=== PATIENT | male | born 1955 | race Hispanic/Latino ===

== ENCOUNTER → 2018-03-13 | Outpatient (CLI) | payer BC ==
--- NOTE | 2018-03-13 18:55 | Diagnostic Imaging Report ---
EXAM: Right Upper Quadrant Ultrasound INDICATION: Not clearly indicated COMPARISON: Ultrasound dated 02/01/2015 TECHNIQUE: Transverse and longitudinal images of the right upper abdomen were obtained. FINDINGS: Liver: Size: 14.7 cm in the right midclavicular line, normal Appearance: Normal echogenicity, smooth contour Mass: No focal masses. Previously noted left hepatic lobe anechoic area is not visualized on today's exam. Gallbladder: Stones/Sludge: None. Multiple echogenic lesions adherent to the gallbladder wall, measuring up to 6 mm. Wall: 0.4 cm Appearance: No pericholecystic fluid or hydrops. Sonographic Best's Sign: Negative Bile Ducts: Intrahepatic Ducts: No dilatation Extrahepatic Ducts: Common bile duct measures 0.3 cm, no dilatation Pancreas: Not well visualized. Right Kidney: Size: 10.8 cm Echogenicity: Normal Parenchymal thickness: Normal Collecting system: No hydronephrosis Stones: None Cyst/Mass: None Vessels: Aorta: Visualized portion is grossly unremarkable. Inferior Vena Cava: Not well visualized Main Portal Vein: 0.7 cm, normal size with hepatopetal flow. Free Fluid: No ascites or pleural effusion IMPRESSION: Gallbladder polyps measuring up to 6 mm. Recommend follow-up in one year to ensure stability. Mild nonspecific gallbladder wall thickening. Signed by: Dr. Ke Paredes MD on 03/13/2018 6:52 PM
== END ==
LOC: US 16:57
PROVIDERS: ATTEND Internal Medicine
DX: K76.89 Other specified diseases of liver (principal)
CPT/HCPCS: 76705

== ENCOUNTER 2020-07-06 23:30 | Emergency (ER) | payer BC ==
[~2020-07-06] VITALS: Ht 160 cm; Wt 83.9 kg
[2020-07-07 00:16] VITALS: BP 168/100
== END 2020-07-07 00:16 | disposition home or self-care (01) ==
LOC: FSED 23:59
DX: R33.9 Retention of urine, unspecified (principal); N40.1 Benign prostatic hyperplasia with lower urinary tract symptoms
CPT/HCPCS: 81003; 99282